=== PATIENT | female | born 1970 | race Caucasian/White ===

== ENCOUNTER 2018-03-21 19:33 | Emergency (ER) | payer MEDICAID, OTHER ==
[~2018-03-21] VITALS: Ht 167.6 cm; Wt 68.9 kg
[2018-03-21 19:41] VITALS: BP 115/77
[2018-03-21] MEDS ORDERED: ACETAMINOPHEN 500 MG TABLET ONE (20:20)
[2018-03-21] MEDS ORDERED: ACETAMINOPHEN 500 MG TABLET PO ONE (20:30)
== END 2018-03-21 20:30 | disposition home or self-care (01) ==
LOC: ED 20:24
DX: J00 Acute nasopharyngitis [common cold] (principal); R05 Cough
CPT/HCPCS: 99282

== ENCOUNTER 2018-03-22 01:36 | Emergency (ER) | payer MEDICAID, OTHER ==
[~2018-03-22] VITALS: Ht 170.2 cm; Wt 68.9 kg
[2018-03-22 01:39] VITALS: BP 135/78
== END 2018-03-22 01:52 | disposition left against medical advice (07) ==
LOC: ED 01:46
DX: Z53.21 Procedure and treatment not carried out due to patient leaving prior to being seen by health care provider (principal)

== ENCOUNTER 2019-03-24 08:05 | Emergency (ER) | payer MEDICARE, MEDICAID ==
[~2019-03-24] VITALS: Ht 172.7 cm; Wt 95.8 kg
--- NOTE | 2019-03-24 08:13 | NUR ---
NOT IN LOBBY X 1 @ [phone]
[2019-03-24 08:19] VITALS: BP 127/62
--- NOTE | 2019-03-24 09:28 | NUR ---
Patient/Caregiver given discharge instructions and they have confirmed that they understand the instructions. Patient ambulatory with steady gait.
== END 2019-03-24 09:30 | disposition home or self-care (01) ==
LOC: ED 08:32
DX: J06.9 Acute upper respiratory infection, unspecified (principal); J45.909 Unspecified asthma, uncomplicated
CPT/HCPCS: 71046; 99283